=== PATIENT | male | born 1985 | race Caucasian/White ===

== ENCOUNTER 2021-03-28 16:02 | Emergency (ER) | payer SELFPAY ==
[~2021-03-28] VITALS: Ht 180.3 cm; Wt 93.7 kg
[2021-03-28 18:38] VITALS: BP 121/74
== END 2021-03-28 18:39 | disposition home or self-care (01) ==
LOC: M ED 16:02
DX: F19.10 Other psychoactive substance abuse, uncomplicated (principal)

== ENCOUNTER 2021-03-28 19:33 | Emergency (ER) | payer SELFPAY ==
[~2021-03-28] VITALS: Ht 182.9 cm; Wt 93.6 kg
[2021-03-28 20:52] LABS: RSV AMPLIFICATION NEGATIVE (NEGATIVE)
[2021-03-28 21:48] LABS: HEMATOCRIT 41.4 % (42.0-52.0); HEMOGLOBIN 13.5 g/dl (13.5-17.5); MEAN CORPUSCULAR HEMOGLOBIN 26.3 pg (27.0-33.0); MEAN CORPUSCULAR HGB CONC 32.6 g/dl (32.0-36.5); MEAN CORPUSCULAR VOLUME 80.5 fl (80.0-96.0); PLATELET COUNT, AUTOMATED 238 10^3/uL (150-450); RED BLOOD COUNT 5.14 10^6/uL (4.30-6.10); WHITE BLOOD COUNT 5.9 10^3/uL (4.0-10.0)
[2021-03-28 22:21] LABS: ACETAMINOPHEN LEVEL < 2.0 UG/ML (10.0-30.0); ALBUMIN 3.6 GM/DL (3.2-5.2); ALT/SGPT 37 U/L (12-78); BILIRUBIN,DIRECT < 0.1 MG/DL (0.0-0.2); BILIRUBIN,TOTAL 0.3 MG/DL (0.2-1.0); BLOOD UREA NITROGEN 16 MG/DL (7-18); CALCIUM LEVEL 8.9 MG/DL (8.5-10.1); CARBON DIOXIDE LEVEL 29 MEQ/L (21-32); CHLORIDE LEVEL 107 MEQ/L (98-107); CREATININE FOR GFR 0.91 MG/DL (0.70-1.30); GLOMERULAR FILTRATION RATE > 60.0 (>60); GLUCOSE, FASTING 96 MG/DL (70-100); POTASSIUM SERUM 4.1 MEQ/L (3.5-5.1); SALICYLATE LEVEL < 1.7 MG/DL (5.0-30.0); SODIUM LEVEL 142 MEQ/L (136-145); TOTAL PROTEIN 6.8 GM/DL (6.4-8.2)
[2021-03-28 22:22] LABS: ETHYL ALCOHOL (ETHANOL) < 0.003 % (0.000-0.010)
[2021-03-29 00:07] LABS: AMPHETAMINES LEVEL URINE NEGATIVE (NEGATIVE); BARBITURATES URINE NEGATIVE (NEGATIVE); BENZODIAZEPINES URINE NEGATIVE (NEGATIVE); CANNABINOIDS URINE NEGATIVE (NEGATIVE); COCAINE METABOLITE URINE POSITIVE (NEGATIVE); METHADONE URINE NEGATIVE (NEGATIVE); OPIATES URINE NEGATIVE (NEGATIVE); PHENCYCLIDINE URINE NEGATIVE (NEGATIVE)
[2021-03-29 02:46] VITALS: BP 137/96
== END 2021-03-29 02:51 | disposition short-term general hospital (02) ==
LOC: M ED 19:33
DX: F19.10 Other psychoactive substance abuse, uncomplicated (principal)

== ENCOUNTER 2023-09-27 21:51 | Observation (INO) | payer OTHER ==
[~2023-09-27] VITALS: Ht 180.3 cm; Wt 104.3 kg
[2023-09-27] MEDS: hydrOXYzine 50 MG TAB PO SCH (21:00)
[2023-09-27] MEDS: QUEtiapine FUMARATE 100 MG TAB PO SCH (21:00)
[2023-09-27] MEDS: traZODone 100 MG TAB PO SCH (21:00)
[2023-09-27] MEDS: QUEtiapine FUMARATE 25 MG TAB PO SCH (21:00)
[2023-09-27] MEDS ORDERED: PANT40TA29 PO (22:07)
[2023-09-27] MEDS ORDERED: MAGN400C PO (22:07)
[2023-09-27] MEDS ORDERED: TRAZ-189 PO (22:07)
[2023-09-27] MEDS ORDERED: SERO1TAB PO (22:07)
[2023-09-27] MEDS ORDERED: QUET1TAB17 PO (22:07)
[2023-09-27] MEDS ORDERED: CLONI1TA PO (22:34)
[2023-09-27] MEDS ORDERED: HYDR50TA70 PO (22:44)
[2023-09-27] MEDS ORDERED: ONDA-84 PO (22:44)
[2023-09-27] MEDS ORDERED: LEXA1TAB PO (23:34)
[2023-09-27] MEDS ORDERED: SUBO4MIS SL (23:34)
[2023-09-27] MEDS ORDERED: HOME MED LIST COMPLETE! XX SCH (23:35)
[2023-09-28] MEDS ORDERED: ACETAMINOPHEN TAB 650MG DOSE (2X325MG) PO PRN (01:15)
[2023-09-28] MEDS ORDERED: MOM 30ML SUSPENSION UDC PO PRN ×2 (01:15→08:50)
[2023-09-28] MEDS ORDERED: IBUPROFEN 400MG TAB PO PRN (01:15)
[2023-09-28] MEDS ORDERED: MAALOX 30 ML SUSP *UDC PO PRN (01:15)
[2023-09-28] MEDS ORDERED: diphenhydrAMINE 25MG CAP PO PRN (01:15)
[2023-09-28] MEDS ORDERED: TAMSULOSIN 0.4 MG CAP PO ONE (08:30)
[2023-09-28] MEDS ORDERED: LORazepam 2 MG TAB PO PRN (08:35)
[2023-09-28] MEDS ORDERED: MOM 30ML SUSPENSION UDC PO ONE ×2 (08:50→12:00)
[2023-09-28] MEDS ORDERED: OXAZEPAM 10MG CAP PO ONE (08:55)
[2023-09-28 09:05] LABS: BASO % 0.4 % (0.0-1.0); EOS # 0.2 10^3/uL (0.0-0.5); HEMATOCRIT 41.4 % (42.0-52.0); LYMPH # 2.9 10^3/uL (1.5-5.0); LYMPH % 42.4 % (24.0-44.0); MEAN CORPUSCULAR HGB CONC 33.8 g/dl (32.0-36.5); MONO # 0.6 10^3/uL (0.0-0.8); MONO % 8.5 % (2.0-8.0); NEUTROPHILS # 3.1 10^3/uL (1.5-8.5); NEUTROPHILS % 45.3 % (36.0-66.0); PLATELET COUNT, AUTOMATED 294 10^3/uL (150-450); RED BLOOD COUNT 5.38 10^6/uL (4.30-6.10); WHITE BLOOD COUNT 6.9 10^3/uL (4.0-10.0)
[2023-09-28 09:18] LABS: ERYTHROCYTE SEDIMENTATION RATE 39 mm/hr (0-15)
[2023-09-28 09:28] LABS: ALBUMIN 3.7 G/DL (3.2-5.2); ALKALINE PHOSPHATASE 43 U/L (46-116); ALT/SGPT 37 U/L (7.0-40); AST/SGOT 24 U/L (<34); BILIRUBIN,TOTAL 0.4 MG/DL (0.3-1.2); BLOOD UREA NITROGEN 12 MG/DL (9-23); CALCIUM LEVEL 9.4 MG/DL (8.5-10.1); CARBON DIOXIDE LEVEL 29 MMOL/L (20-31); CHLORIDE LEVEL 102 MMOL/L (98-107); CREATININE FOR GFR 0.78 MG/DL (0.70-1.30); GLOMERULAR FILTRATION RATE > 60.0 (>60); GLUCOSE, FASTING 93 MG/DL (60-100); POTASSIUM SERUM 4.5 MMOL/L (3.5-5.1); SODIUM LEVEL 139 MMOL/L (136-145)
[2023-09-28 09:30] LABS: THYROID STIMULATING HORMONE 4.218 uIU/ML (0.55-4.78)
[2023-09-28] MEDS ORDERED: LACTULOSE 20GM/30ML SYRUP UDC PO PRN (09:35)
[2023-09-28 10:40] VITALS: BP 138/83; TEMP 98.3; O2SAT 100
[2023-09-28] MEDS: PANTOPRAZOLE 40MG TAB (PROTONIX) PO SCH ×2 (12:00→21:20)
[2023-09-28] MEDS: MAGNESIUM OXIDE 400MG TAB (MAG-OX) PO SCH (12:13)
[2023-09-28] MEDS: FOLIC ACID 1MG TAB PO SCH (12:13)
[2023-09-28] MEDS: ESCITALOPRAM OXALATE 10 MG TAB (LEXAPRO) PO SCH (12:14)
[2023-09-28] MEDS: MULTIVITAMINS/MINERALS THERAP 1 TAB PO SCH (12:14)
[2023-09-28] MEDS: MIRALAX *UNIT DOSE* 17GM PACKET PO SCH ×2 (12:14→21:00)
[2023-09-28] MEDS: SENOKOT S TAB PO SCH ×3 (12:14→21:20)
[2023-09-28] MEDS: QUEtiapine FUMARATE 25 MG TAB PO SCH ×2 (12:15→21:20)
[2023-09-28] MEDS: THIAMINE 100 MG TAB PO SCH ×2 (12:15→21:20)
[2023-09-28 13:42] VITALS: BP 125/75; TEMP 98.2; O2SAT 98
[2023-09-28] MEDS: NS 1,000 ML IV SCH ×2 (13:43→14:45)
[2023-09-28 14:25] VITALS: BP 125/75
[2023-09-28] MEDS ORDERED: LACTULOSE 20GM/30ML SYRUP UDC PO ONE (18:00)
[2023-09-28 19:47] VITALS: BP 136/92; TEMP 98.2; O2SAT 100
[2023-09-28] MEDS: hydrOXYzine 50 MG TAB PO SCH (21:20)
[2023-09-28] MEDS: QUEtiapine FUMARATE 100 MG TAB PO SCH (21:20)
[2023-09-28] MEDS: traZODone 100 MG TAB PO SCH (21:20)
[2023-09-28 22:00] VITALS: BP 136/92
[2023-09-28] MEDS ORDERED: FLEET ENEMA PR ONE (22:00)
[2023-09-29 05:15] VITALS: BP 111/58; TEMP 98.1; O2SAT 98
[2023-09-29 06:00] VITALS: BP 111/58
[2023-09-29] MEDS ORDERED: NS 1,000 ML IV ONE ×3 (07:30→09:00)
[2023-09-29] MEDS: QUEtiapine FUMARATE 25 MG TAB PO SCH (08:49)
[2023-09-29] MEDS: FOLIC ACID 1MG TAB PO SCH (08:49)
[2023-09-29] MEDS: PANTOPRAZOLE 40MG TAB (PROTONIX) PO SCH (08:49)
[2023-09-29] MEDS: ESCITALOPRAM OXALATE 10 MG TAB (LEXAPRO) PO SCH (08:49)
[2023-09-29] MEDS: THIAMINE 100 MG TAB PO SCH (08:49)
[2023-09-29] MEDS: MAGNESIUM OXIDE 400MG TAB (MAG-OX) PO SCH (08:49)
[2023-09-29] MEDS: MULTIVITAMINS/MINERALS THERAP 1 TAB PO SCH (08:49)
[2023-09-29] MEDS: MIRALAX *UNIT DOSE* 17GM PACKET PO SCH (08:50)
[2023-09-29] MEDS: SENOKOT S TAB PO SCH (08:50)
[2023-09-29] MEDS ORDERED: FLOM0.4C39 PO (13:58)
[2023-09-29] MEDS ORDERED: SENN-52 PO (14:00)
[2023-09-29] MEDS ORDERED: MOM30SS2 PO (14:00)
[2023-09-29] MEDS ORDERED: MIRA3350 PO (14:00)
[2023-09-29 14:44] VITALS: BP 117/75; TEMP 98.6; O2SAT 99
[2023-09-29] MEDS ORDERED: TAMSULOSIN 0.4 MG CAP PO SCH (21:00)
== END 2023-09-29 15:00 | disposition other institution (70) ==
LOC: M ED 21:51 → M ED INP 21:52 → UNDOADMIN 09-28 01:14 → M ED INP 09-28 01:14 → M MS5PR 09-28 10:40
PROVIDERS: ADMIT General Practice; ATTEND General Practice
DX: R33.9 Retention of urine, unspecified (principal); F32.A Depression, unspecified; R45.851 Suicidal ideations; Z59.00 Homelessness unspecified; F14.10 Cocaine abuse, uncomplicated; F10.10 Alcohol abuse, uncomplicated; E66.9 Obesity, unspecified; K59.00 Constipation, unspecified; Z79.899 Other long term (current) drug therapy

== ENCOUNTER 2023-09-29 12:12 | Inpatient (IN) | payer OTHER ==
[~2023-09-29] VITALS: Ht 180.3 cm; Wt 105.0 kg
[~2023-09-29 12:12] MED LIST: CLONI1TA PO; HYDR50TA70 PO; LEXA1TAB PO; MAGN400C PO; ONDA-84 PO; PANT40TA29 PO; QUET1TAB17 PO; SERO1TAB PO; SUBO4MIS SL; TRAZ-189 PO
[2023-09-29] MEDS ORDERED: FLOM0.4C39 PO (13:58)
[2023-09-29] MEDS ORDERED: MOM30SS2 PO (14:00)
[2023-09-29] MEDS ORDERED: SENN-52 PO (14:00)
[2023-09-29] MEDS ORDERED: MIRA3350 PO (14:00)
[2023-09-29] MEDS ORDERED: MAALOX 30 ML SUSP *UDC PO PRN (14:25)
[2023-09-29] MEDS ORDERED: IBUPROFEN 400MG TAB PO PRN (14:25)
[2023-09-29] MEDS ORDERED: diphenhydrAMINE 25MG CAP PO PRN (14:25)
[2023-09-29] MEDS ORDERED: traZODone 50 MG TAB PO PRN (14:25)
[2023-09-29] MEDS ORDERED: MOM 30ML SUSPENSION UDC PO PRN (14:25)
[2023-09-29] MEDS ORDERED: LORazepam 2 MG TAB PO PRN (14:25)
[2023-09-29 15:15] VITALS: BP 117/75
[2023-09-29 16:19] VITALS: BP 117/75; TEMP 98.6; O2SAT 99
[2023-09-29] MEDS: QUEtiapine FUMARATE 100 MG TAB PO SCH (20:55)
[2023-09-29] MEDS: PANTOPRAZOLE 40MG TAB (PROTONIX) PO SCH (20:55)
[2023-09-29] MEDS: traZODone 100 MG TAB PO PRN (20:55)
[2023-09-29] MEDS: THIAMINE 100 MG TAB PO SCH (20:55)
[2023-09-29] MEDS: hydrOXYzine 50 MG TAB PO SCH (20:55)
[2023-09-29] MEDS: QUEtiapine FUMARATE 25 MG TAB PO SCH (20:55)
[2023-09-29 22:58] VITALS: BP 143/87
[2023-09-29] MEDS: ACETAMINOPHEN TAB 650MG DOSE (2X325MG) PO PRN (23:11)
[2023-09-30 06:31] VITALS: BP 141/73
[2023-09-30 06:33] VITALS: BP 141/73; TEMP 97.9; O2SAT 100
[2023-09-30] MEDS: QUEtiapine FUMARATE 25 MG TAB PO SCH ×2 (08:41→20:31)
[2023-09-30] MEDS: THIAMINE 100 MG TAB PO SCH ×2 (08:41→20:31)
[2023-09-30] MEDS: ESCITALOPRAM OXALATE 10 MG TAB (LEXAPRO) PO SCH (08:41)
[2023-09-30] MEDS: MULTIVITAMINS/MINERALS THERAP 1 TAB PO SCH (08:41)
[2023-09-30] MEDS: FOLIC ACID 1MG TAB PO SCH (08:41)
[2023-09-30] MEDS: PANTOPRAZOLE 40MG TAB (PROTONIX) PO SCH ×2 (08:41→20:31)
[2023-09-30 16:28] VITALS: BP 154/89; TEMP 98.2; O2SAT 98
[2023-09-30] MEDS: ACETAMINOPHEN TAB 650MG DOSE (2X325MG) PO PRN (20:30)
[2023-09-30] MEDS: traZODone 100 MG TAB PO PRN (20:31)
[2023-09-30] MEDS: QUEtiapine FUMARATE 100 MG TAB PO SCH (20:31)
[2023-09-30] MEDS: TAMSULOSIN 0.4 MG CAP PO SCH (20:31)
[2023-09-30] MEDS: hydrOXYzine 50 MG TAB PO SCH (20:31)
[2023-10-01 06:21] VITALS: BP 136/74
[2023-10-01 06:36] VITALS: BP 136/74; TEMP 97.9; O2SAT 96
[2023-10-01] MEDS: PANTOPRAZOLE 40MG TAB (PROTONIX) PO SCH ×2 (09:26→21:02)
[2023-10-01] MEDS: FOLIC ACID 1MG TAB PO SCH (09:26)
[2023-10-01] MEDS: THIAMINE 100 MG TAB PO SCH ×2 (09:26→21:02)
[2023-10-01] MEDS: ESCITALOPRAM OXALATE 10 MG TAB (LEXAPRO) PO SCH (09:26)
[2023-10-01] MEDS: MULTIVITAMINS/MINERALS THERAP 1 TAB PO SCH (09:26)
[2023-10-01] MEDS: QUEtiapine FUMARATE 25 MG TAB PO SCH ×2 (09:27→21:02)
[2023-10-01] MEDS: ACETAMINOPHEN TAB 650MG DOSE (2X325MG) PO PRN (09:28)
[2023-10-01] MEDS ORDERED: LORazepam 1 MG TAB PO PRN (09:43)
[2023-10-01 16:19] VITALS: BP 137/78; TEMP 97.5; O2SAT 95
[2023-10-01] MEDS: hydrOXYzine 50 MG TAB PO SCH (21:02)
[2023-10-01] MEDS: QUEtiapine FUMARATE 100 MG TAB PO SCH (21:02)
[2023-10-01] MEDS: TAMSULOSIN 0.4 MG CAP PO SCH (21:02)
[2023-10-02 06:20] VITALS: BP 116/63; TEMP 97.5; O2SAT 97
[2023-10-02 06:33] VITALS: BP 116/63
[2023-10-02] MEDS: QUEtiapine FUMARATE 25 MG TAB PO SCH ×2 (08:47→21:12)
[2023-10-02] MEDS: FOLIC ACID 1MG TAB PO SCH (08:47)
[2023-10-02] MEDS: THIAMINE 100 MG TAB PO SCH (08:47)
[2023-10-02] MEDS: ESCITALOPRAM OXALATE 10 MG TAB (LEXAPRO) PO SCH (08:47)
[2023-10-02] MEDS: MULTIVITAMINS/MINERALS THERAP 1 TAB PO SCH (08:47)
[2023-10-02] MEDS: PANTOPRAZOLE 40MG TAB (PROTONIX) PO SCH ×2 (08:47→21:12)
[2023-10-02] MEDS ORDERED: VITMTA PO (12:04)
[2023-10-02] MEDS ORDERED: THIA100TA PO (12:04)
[2023-10-02] MEDS ORDERED: LEXA1TAB PO (12:04)
[2023-10-02] MEDS ORDERED: PANT40TA29 PO (12:04)
[2023-10-02] MEDS ORDERED: QUET1TAB17 PO (12:04)
[2023-10-02] MEDS ORDERED: QUET100T2 PO (12:04)
[2023-10-02] MEDS ORDERED: TRAZ-257 PO (12:04)
[2023-10-02] MEDS ORDERED: FLOM0.4C39 PO (12:04)
[2023-10-02 17:54] VITALS: BP 123/76; TEMP 98.5; O2SAT 96
[2023-10-02] MEDS: TAMSULOSIN 0.4 MG CAP PO SCH (21:12)
[2023-10-02] MEDS: hydrOXYzine 50 MG TAB PO SCH (21:12)
[2023-10-02] MEDS: QUEtiapine FUMARATE 100 MG TAB PO SCH (21:12)
[2023-10-02 21:50] VITALS: BP 140/93; TEMP 98; O2SAT 97
[2023-10-02 22:00] VITALS: BP 140/93
[2023-10-03 06:00] VITALS: BP 133/61
[2023-10-03 06:49] VITALS: BP 133/61; TEMP 98.7; O2SAT 96
[2023-10-03] MEDS: MULTIVITAMINS/MINERALS THERAP 1 TAB PO SCH (08:34)
[2023-10-03] MEDS: QUEtiapine FUMARATE 25 MG TAB PO SCH (08:34)
[2023-10-03] MEDS: PANTOPRAZOLE 40MG TAB (PROTONIX) PO SCH (08:34)
[2023-10-03] MEDS: FOLIC ACID 1MG TAB PO SCH (08:34)
[2023-10-03] MEDS: ESCITALOPRAM OXALATE 10 MG TAB (LEXAPRO) PO SCH (08:34)
== END 2023-10-03 12:15 | disposition home or self-care (01) | DRG 754 ==
LOC: M PSY 14:21
PROVIDERS: ADMIT Student in an Organized Health Care Education/Training Program; ATTEND Student in an Organized Health Care Education/Training Program
DX: F32.A Depression, unspecified (principal); F12.90 Cannabis use, unspecified, uncomplicated; F15.90 Other stimulant use, unspecified, uncomplicated; F10.10 Alcohol abuse, uncomplicated; Z79.899 Other long term (current) drug therapy; R33.9 Retention of urine, unspecified; R45.851 Suicidal ideations; Z59.00 Homelessness unspecified